=== PATIENT | female | born 1945 | race Caucasian/White ===

== ENCOUNTER 2020-04-15 15:48 | Inpatient (IN) ==
[2020-04-15] MEDS ORDERED: Insulin DETEMIR 100 UNIT/ML per UNIT SUBQ ONE (23:45)
[2020-04-16] MEDS: Gabapentin 300 MG CAPSULE PO SCH ×4 (00:09→20:31)
[2020-04-16] MEDS: Lactulose Oral Soln 20 GM/30 ML UDC PO SCH ×5 (00:09→20:29)
[2020-04-16] MEDS: rOPINIRole 0.25 MG TABLET PO SCH ×2 (00:09→20:31)
[2020-04-16 07:31] LABS: Basophils % 0.5 %; Eosinophils # 0.1 K/mcL (0.0-0.6); Eosinophils % 1.9 %; Hematocrit 31.5 % (35.3-44.9); Hemoglobin 9.4 g/dL (11.5-15.4); Immature Granulocytes % 0.2 % (0-4); Lymphocytes # 1.4 K/mcL (0.6-4.6); Lymphocytes % 33.3 %; Mean Corpuscular HGB Conc 29.8 g/dL (31.6-35.5); Mean Corpuscular Hemoglobin 24.4 pg (28.0-33.3); Mean Corpuscular Volume 81.6 fL (83.0-100.0); Mean Platelet Volume 10.4 fL (9.4-12.4); Monocytes # 0.6 K/mcL (0.0-1.3); Monocytes % 14.2 %; Neutrophils # 2.1 K/mcL (1.6-8.9); Platelet Count 118 K/mcL (140-400); Red Blood Count 3.86 M/mcL (3.82-4.97); Red Cell Distribution Width 22.3 % (11.5-14.5); Segmented Neutrophils % 49.9 %; White Blood Count 4.2 K/mcL (4.3-11.1)
[2020-04-16 07:46] LABS: BUN/Creatinine Ratio 21 (6-26); Blood Urea Nitrogen 15 mg/dL (8-23); Calcium 8.5 mg/dL (8.6-10.3); Carbon Dioxide 28 mEq/L (23-29); Chloride 102 mEq/L (98-107); Glucose 233 mg/dL (70-105); Osmolality,Calculated 284 (280-300); Potassium 4.1 mEq/L (3.5-5.1); Sodium 133 mEq/L (136-145); eGFR For African Americans > 60 (> 60); eGFR For Non-African Americans > 60 (> 60)
[2020-04-16] MEDS: Spironolactone 25 MG TABLET PO SCH (08:27)
[2020-04-16] MEDS: atenoloL 25 MG TABLET PO SCH (08:27)
[2020-04-16] MEDS: Furosemide 20 MG TABLET PO SCH (08:27)
[2020-04-16] MEDS: Aspirin Enteric Coated 81 MG Tablet PO SCH (08:27)
[2020-04-16] MEDS: Insulin LISPRO 300 UNITS/3 ML VIAL SUBQ SCH ×3 (08:28→17:09)
[2020-04-16] MEDS: Venlafaxine XR (24 HR) 37.5 MG CAP.ER.24H PO SCH (08:34)
[2020-04-16] MEDS ORDERED: Insulin DETEMIR 100 UNIT/ML X5UNITS SUBQ SCH (21:00)
[2020-04-17] MEDS: Insulin LISPRO 300 UNITS/3 ML VIAL SUBQ SCH ×4 (07:52→20:03)
[2020-04-17] MEDS: Venlafaxine XR (24 HR) 37.5 MG CAP.ER.24H PO SCH (09:20)
[2020-04-17] MEDS: atenoloL 25 MG TABLET PO SCH (09:20)
[2020-04-17] MEDS: Gabapentin 300 MG CAPSULE PO SCH ×3 (09:20→20:04)
[2020-04-17] MEDS: Spironolactone 25 MG TABLET PO SCH (09:21)
[2020-04-17] MEDS: Aspirin Enteric Coated 81 MG Tablet PO SCH (09:21)
[2020-04-17] MEDS: Furosemide 20 MG TABLET PO SCH (09:21)
[2020-04-17] MEDS: Lactulose Oral Soln 20 GM/30 ML UDC PO SCH ×4 (09:21→20:04)
[2020-04-17] MEDS: rOPINIRole 0.25 MG TABLET PO SCH (20:04)
[2020-04-17] MEDS ORDERED: Insulin DETEMIR 100 UNIT/ML per UNIT SUBQ ONE (21:00)
[2020-04-18 05:48] LABS: Basophils % 0.3 %; Eosinophils # 0.1 K/mcL (0.0-0.6); Eosinophils % 2.4 %; Hematocrit 31.2 % (35.3-44.9); Hemoglobin 9.2 g/dL (11.5-15.4); Immature Granulocytes % 0.3 % (0-4); Lymphocytes # 1.3 K/mcL (0.6-4.6); Lymphocytes % 34.9 %; Mean Corpuscular HGB Conc 29.5 g/dL (31.6-35.5); Mean Corpuscular Hemoglobin 24.3 pg (28.0-33.3); Mean Corpuscular Volume 82.3 fL (83.0-100.0); Mean Platelet Volume 10.5 fL (9.4-12.4); Monocytes # 0.4 K/mcL (0.0-1.3); Monocytes % 11.5 %; Neutrophils # 1.9 K/mcL (1.6-8.9); Platelet Count 115 K/mcL (140-400); Red Blood Count 3.79 M/mcL (3.82-4.97); Red Cell Distribution Width 22.6 % (11.5-14.5); Segmented Neutrophils % 50.6 %; White Blood Count 3.8 K/mcL (4.3-11.1)
[2020-04-18 06:06] LABS: Alanine Aminotransferase 29 Units/L (7-52); Albumin 2.9 g/dL (3.5-5.7); Albumin/Globulin Ratio 0.9 (1.1-2.2); Alkaline Phosphatase 102 Units/L (34-104); Aspartate Amino Transferase 45 Units/L (13-39); BUN/Creatinine Ratio 12 (6-26); Bilirubin,Total 0.7 mg/dL (0.3-1.0); Blood Urea Nitrogen 8 mg/dL (8-23); Calcium 8.5 mg/dL (8.6-10.3); Carbon Dioxide 27 mEq/L (23-29); Chloride 104 mEq/L (98-107); Globulin 3.3 g/dL (2.4-3.5); Glucose 172 mg/dL (70-105); Osmolality,Calculated 284 (280-300); Potassium 4.1 mEq/L (3.5-5.1); Sodium 136 mEq/L (136-145); Total Protein 6.2 g/dL (6.4-8.9); eGFR For African Americans > 60 (> 60); eGFR For Non-African Americans > 60 (> 60)
[2020-04-18] MEDS: Furosemide 20 MG TABLET PO SCH (08:09)
[2020-04-18] MEDS: Aspirin Enteric Coated 81 MG Tablet PO SCH (08:09)
[2020-04-18] MEDS: Spironolactone 25 MG TABLET PO SCH (08:09)
[2020-04-18] MEDS: Gabapentin 300 MG CAPSULE PO SCH ×3 (08:09→19:32)
[2020-04-18] MEDS: Venlafaxine XR (24 HR) 37.5 MG CAP.ER.24H PO SCH (08:09)
[2020-04-18] MEDS: atenoloL 25 MG TABLET PO SCH (08:09)
[2020-04-18] MEDS: Insulin LISPRO 300 UNITS/3 ML VIAL SUBQ SCH ×4 (08:10→19:44)
[2020-04-18] MEDS: Lactulose Oral Soln 20 GM/30 ML UDC PO SCH ×4 (08:14→19:32)
[2020-04-18] MEDS: rOPINIRole 0.25 MG TABLET PO SCH (19:32)
[2020-04-18] MEDS ORDERED: Insulin DETEMIR 100 UNIT/ML X5UNITS SUBQ SCH (21:00)
[2020-04-19] MEDS: Lactulose Oral Soln 20 GM/30 ML UDC PO SCH ×6 (02:58→23:54)
[2020-04-19] MEDS: Insulin LISPRO 300 UNITS/3 ML VIAL SUBQ SCH ×4 (07:25→19:46)
[2020-04-19] MEDS: atenoloL 25 MG TABLET PO SCH (08:04)
[2020-04-19] MEDS: Aspirin Enteric Coated 81 MG Tablet PO SCH (08:04)
[2020-04-19] MEDS: Furosemide 20 MG TABLET PO SCH (08:04)
[2020-04-19] MEDS: Gabapentin 300 MG CAPSULE PO SCH ×3 (08:04→19:46)
[2020-04-19] MEDS: Spironolactone 25 MG TABLET PO SCH (08:04)
[2020-04-19] MEDS: Venlafaxine XR (24 HR) 37.5 MG CAP.ER.24H PO SCH (08:05)
[2020-04-19] MEDS: rOPINIRole 0.25 MG TABLET PO SCH (19:46)
[2020-04-19] MEDS: Insulin DETEMIR 100 UNIT/ML X5UNITS SUBQ SCH (19:46)
[2020-04-20] MEDS: Insulin LISPRO 300 UNITS/3 ML VIAL SUBQ SCH ×4 (07:33→20:15)
[2020-04-20] MEDS: Venlafaxine XR (24 HR) 37.5 MG CAP.ER.24H PO SCH (07:53)
[2020-04-20] MEDS: Aspirin Enteric Coated 81 MG Tablet PO SCH (07:53)
[2020-04-20] MEDS: Furosemide 20 MG TABLET PO SCH (07:54)
[2020-04-20] MEDS: atenoloL 25 MG TABLET PO SCH (07:54)
[2020-04-20] MEDS: Spironolactone 25 MG TABLET PO SCH (07:54)
[2020-04-20] MEDS: Gabapentin 300 MG CAPSULE PO SCH ×3 (07:54→20:17)
[2020-04-20] MEDS: Lactulose Oral Soln 20 GM/30 ML UDC PO SCH ×4 (07:59→20:15)
[2020-04-20] MEDS ORDERED: Acetaminophen 325 MG TABLET PO ONE (11:19)
[2020-04-20 12:01] LABS: Basophils % 0.8 %; Eosinophils # 0.1 K/mcL (0.0-0.6); Eosinophils % 2.7 %; Hematocrit 34.1 % (35.3-44.9); Immature Granulocytes % 0.3 % (0-4); Lymphocytes % 26.5 %; Mean Corpuscular HGB Conc 29.3 g/dL (31.6-35.5); Mean Corpuscular Hemoglobin 24.3 pg (28.0-33.3); Mean Corpuscular Volume 82.8 fL (83.0-100.0); Monocytes # 0.4 K/mcL (0.0-1.3); Monocytes % 9.7 %; Neutrophils # 2.2 K/mcL (1.6-8.9); Platelet Count 110 K/mcL (140-400); Red Blood Count 4.12 M/mcL (3.82-4.97); Red Cell Distribution Width 22.5 % (11.5-14.5); White Blood Count 3.7 K/mcL (4.3-11.1)
[2020-04-20 12:19] LABS: Alanine Aminotransferase 28 Units/L (7-52); Albumin 3.3 g/dL (3.5-5.7); Albumin/Globulin Ratio 0.9 (1.1-2.2); Alkaline Phosphatase 118 Units/L (34-104); Aspartate Amino Transferase 43 Units/L (13-39); BUN/Creatinine Ratio 9 (6-26); Bilirubin,Total 0.8 mg/dL (0.3-1.0); Blood Urea Nitrogen 7 mg/dL (8-23); Carbon Dioxide 31 mEq/L (23-29); Chloride 100 mEq/L (98-107); Globulin 3.6 g/dL (2.4-3.5); Glucose 345 mg/dL (70-105); Osmolality,Calculated 292 (280-300); Potassium 4.2 mEq/L (3.5-5.1); Sodium 135 mEq/L (136-145); Total Protein 6.9 g/dL (6.4-8.9); eGFR For African Americans > 60 (> 60); eGFR For Non-African Americans > 60 (> 60)
[2020-04-20] MEDS: Insulin DETEMIR 100 UNIT/ML X5UNITS SUBQ SCH (20:16)
[2020-04-20] MEDS: rOPINIRole 0.25 MG TABLET PO SCH (20:17)
[2020-04-21] MEDS: Lactulose Oral Soln 20 GM/30 ML UDC PO SCH ×2 (00:49→08:00)
[2020-04-21] MEDS: Insulin LISPRO 300 UNITS/3 ML VIAL SUBQ SCH (07:50)
[2020-04-21] MEDS: Gabapentin 300 MG CAPSULE PO SCH (08:00)
[2020-04-21] MEDS: Venlafaxine XR (24 HR) 37.5 MG CAP.ER.24H PO SCH (08:00)
[2020-04-21] MEDS: Aspirin Enteric Coated 81 MG Tablet PO SCH (08:01)
[2020-04-21] MEDS: Furosemide 20 MG TABLET PO SCH (08:01)
[2020-04-21] MEDS: Spironolactone 25 MG TABLET PO SCH (08:01)
[2020-04-21] MEDS: atenoloL 25 MG TABLET PO SCH (08:01)
[2020-04-21 08:11] VITALS: BP 116/59
== END 2020-04-21 11:03 | disposition home or self-care (01) | DRG 946 ==
LOC: INPPIK → OBSVTOIN 19:22
PROVIDERS: ADMIT Family Medicine; ATTEND Family Medicine

== ENCOUNTER 2020-05-28 12:02 | Inpatient (IN) ==
[2020-05-28] MEDS: *HR* Metformin 500 MG TABLET PO SCH (19:35)
[2020-05-28] MEDS: rOPINIRole 0.25 MG TABLET PO SCH (19:41)
[2020-05-28] MEDS: Lactulose Oral Soln 20 GM/30 ML UDC PO SCH (19:41)
[2020-05-29] MEDS: Lactulose Oral Soln 20 GM/30 ML UDC PO SCH ×6 (00:25→23:56)
[2020-05-29 07:27] LABS: Basophils % 0.3 %; Eosinophils # 0.1 K/mcL (0.0-0.6); Eosinophils % 2.2 %; Hematocrit 30.7 % (35.3-44.9); Hemoglobin 9.4 g/dL (11.5-15.4); Immature Granulocytes % 0.3 % (0-4); Lymphocytes # 0.9 K/mcL (0.6-4.6); Lymphocytes % 28.8 %; Mean Corpuscular HGB Conc 30.6 g/dL (31.6-35.5); Mean Corpuscular Hemoglobin 25.8 pg (28.0-33.3); Mean Corpuscular Volume 84.3 fL (83.0-100.0); Monocytes # 0.4 K/mcL (0.0-1.3); Neutrophils # 1.8 K/mcL (1.6-8.9); Red Blood Count 3.64 M/mcL (3.82-4.97); Red Cell Distribution Width 20.1 % (11.5-14.5); Segmented Neutrophils % 55.4 %; White Blood Count 3.2 K/mcL (4.3-11.1)
[2020-05-29 07:28] LABS: Platelet Count 92 K/mcL (140-400)
[2020-05-29 07:55] LABS: BUN/Creatinine Ratio 10 (6-26); Blood Urea Nitrogen 7 mg/dL (8-23); Calcium 8.3 mg/dL (8.6-10.3); Carbon Dioxide 25 mEq/L (23-29); Chloride 105 mEq/L (98-107); Glucose 128 mg/dL (70-105); Osmolality,Calculated 284 (280-300); Potassium 3.6 mEq/L (3.5-5.1); Sodium 137 mEq/L (136-145); eGFR For African Americans > 60 (> 60); eGFR For Non-African Americans > 60 (> 60)
[2020-05-29] MEDS: *HR* Glimepiride 2 MG TABLET PO SCH (08:58)
[2020-05-29] MEDS: *HR* Metformin 500 MG TABLET PO SCH ×2 (08:58→17:13)
[2020-05-29] MEDS: *HR* SitaGLIPtin 100 MG TABLET PO SCH (08:58)
[2020-05-29] MEDS: Venlafaxine XR (24 HR) 75 MG CAP.ER.24H PO SCH (08:58)
[2020-05-29] MEDS: Aspirin Enteric Coated 81 MG Tablet PO SCH (08:59)
[2020-05-29] MEDS ORDERED: Furosemide 20 MG TABLET PO SCH (09:00)
[2020-05-29] MEDS ORDERED: Insulin DETEMIR 100 UNIT/ML X5UNITS SUBQ PRN (09:00)
[2020-05-29] MEDS ORDERED: Spironolactone 25 MG TABLET PO SCH (09:00)
[2020-05-29] MEDS ORDERED: D5% in Water 1,000 ML IVC PRN (18:12)
[2020-05-29] MEDS ORDERED: *HR* Dextrose 50 % in Water (Vial) 50 ML VIAL IVP PRN (18:12)
[2020-05-29] MEDS ORDERED: Dextrose Gel 15 GM/37.5 ML TUBE PO PRN ×2 (18:12)
[2020-05-29] MEDS: rOPINIRole 0.25 MG TABLET PO SCH (19:30)
[2020-05-30] MEDS: *HR* Enoxaparin 40 MG/0.4 ML SYRINGE SQ SCH (05:52)
[2020-05-30] MEDS: Aspirin Enteric Coated 81 MG Tablet PO SCH (08:37)
[2020-05-30] MEDS: *HR* Metformin 500 MG TABLET PO SCH ×2 (08:37→17:27)
[2020-05-30] MEDS: Venlafaxine XR (24 HR) 75 MG CAP.ER.24H PO SCH (08:37)
[2020-05-30] MEDS: *HR* Glimepiride 2 MG TABLET PO SCH (08:37)
[2020-05-30] MEDS: Spironolactone 25 MG TABLET PO SCH (08:37)
[2020-05-30] MEDS: Furosemide 20 MG TABLET PO SCH (08:38)
[2020-05-30] MEDS: Insulin LISPRO 300 UNITS/3 ML VIAL SUBQ SCH ×4 (08:38→20:42)
[2020-05-30] MEDS: *HR* SitaGLIPtin 100 MG TABLET PO SCH (08:38)
[2020-05-30] MEDS: Lactulose Oral Soln 20 GM/30 ML UDC PO SCH ×4 (08:43→20:41)
[2020-05-30] MEDS ORDERED: Spironolactone 25 MG TABLET PO SCH (09:00)
[2020-05-30] MEDS ORDERED: Sodium Ferric Gluconat/Sucrose 125 MG in 0.9 % Sodium Chloride 100 ML IVPB SCH (09:00)
[2020-05-30] MEDS: Acetaminophen 325 MG TABLET PO PRN (10:20)
[2020-05-30] MEDS: Iron Sucrose Complex 200 MG in 0.9 % Sodium Chloride 100 ML IVPB SCH (14:09)
[2020-05-30] MEDS: rOPINIRole 0.25 MG TABLET PO SCH (20:42)
[2020-05-30] MEDS: Ibuprofen 400 MG TABLET PO PRN (20:45)
[2020-05-31] MEDS: Lactulose Oral Soln 20 GM/30 ML UDC PO SCH ×5 (00:19→20:29)
[2020-05-31] MEDS: *HR* Enoxaparin 40 MG/0.4 ML SYRINGE SQ SCH (06:17)
[2020-05-31] MEDS: Insulin LISPRO 300 UNITS/3 ML VIAL SUBQ SCH ×4 (07:39→20:31)
[2020-05-31] MEDS: *HR* SitaGLIPtin 100 MG TABLET PO SCH (08:27)
[2020-05-31] MEDS: *HR* Glimepiride 2 MG TABLET PO SCH (08:27)
[2020-05-31] MEDS: *HR* Metformin 500 MG TABLET PO SCH ×2 (08:27→16:17)
[2020-05-31] MEDS: Aspirin Enteric Coated 81 MG Tablet PO SCH (08:27)
[2020-05-31] MEDS: Venlafaxine XR (24 HR) 75 MG CAP.ER.24H PO SCH (08:28)
[2020-05-31] MEDS: Furosemide 20 MG TABLET PO SCH (08:28)
[2020-05-31] MEDS: Spironolactone 25 MG TABLET PO SCH (08:28)
[2020-05-31] MEDS: Iron Sucrose Complex 200 MG in 0.9 % Sodium Chloride 100 ML IVPB SCH (08:29)
[2020-05-31] MEDS: rOPINIRole 0.25 MG TABLET PO SCH (20:29)
[2020-05-31] MEDS: Gabapentin 300 MG CAPSULE PO SCH (20:29)
[2020-06-01] MEDS: Lactulose Oral Soln 20 GM/30 ML UDC PO SCH ×5 (00:45→21:07)
[2020-06-01] MEDS: *HR* Enoxaparin 40 MG/0.4 ML SYRINGE SQ SCH (06:09)
[2020-06-01] MEDS: Ibuprofen 400 MG TABLET PO PRN ×2 (06:11→16:10)
[2020-06-01] MEDS ORDERED: atenoloL 25 MG TABLET PO SCH (09:00)
[2020-06-01] MEDS ORDERED: hydroCHLOROthiazide 25 MG TABLET PO SCH (09:00)
[2020-06-01] MEDS: Spironolactone 25 MG TABLET PO SCH (09:07)
[2020-06-01] MEDS: *HR* SitaGLIPtin 100 MG TABLET PO SCH (09:07)
[2020-06-01] MEDS: *HR* Metformin 500 MG TABLET PO SCH ×2 (09:07→16:03)
[2020-06-01] MEDS: Aspirin Enteric Coated 81 MG Tablet PO SCH (09:07)
[2020-06-01] MEDS: Venlafaxine XR (24 HR) 75 MG CAP.ER.24H PO SCH (09:07)
[2020-06-01] MEDS: Gabapentin 300 MG CAPSULE PO SCH ×3 (09:07→21:09)
[2020-06-01] MEDS: Furosemide 20 MG TABLET PO SCH (09:07)
[2020-06-01] MEDS: Insulin LISPRO 300 UNITS/3 ML VIAL SUBQ SCH ×4 (09:07→21:09)
[2020-06-01] MEDS: *HR* Glimepiride 2 MG TABLET PO SCH (09:07)
[2020-06-01] MEDS: rOPINIRole 0.25 MG TABLET PO SCH (21:09)
[2020-06-02] MEDS: Lactulose Oral Soln 20 GM/30 ML UDC PO SCH ×6 (00:33→23:14)
[2020-06-02] MEDS: *HR* Enoxaparin 40 MG/0.4 ML SYRINGE SQ SCH (05:08)
[2020-06-02] MEDS: Ibuprofen 400 MG TABLET PO PRN ×2 (09:27→14:47)
[2020-06-02] MEDS: *HR* SitaGLIPtin 100 MG TABLET PO SCH (09:27)
[2020-06-02] MEDS: *HR* Glimepiride 2 MG TABLET PO SCH (09:27)
[2020-06-02] MEDS: Aspirin Enteric Coated 81 MG Tablet PO SCH (09:27)
[2020-06-02] MEDS: Venlafaxine XR (24 HR) 75 MG CAP.ER.24H PO SCH (09:28)
[2020-06-02] MEDS: *HR* Metformin 500 MG TABLET PO SCH ×2 (09:28→16:50)
[2020-06-02] MEDS: Spironolactone 25 MG TABLET PO SCH (09:28)
[2020-06-02] MEDS: Gabapentin 300 MG CAPSULE PO SCH ×3 (09:28→20:56)
[2020-06-02] MEDS: Insulin LISPRO 300 UNITS/3 ML VIAL SUBQ SCH ×4 (09:28→20:57)
[2020-06-02] MEDS: Furosemide 20 MG TABLET PO SCH (09:28)
[2020-06-02] MEDS ORDERED: Iron Sucrose Complex 200 MG in 0.9 % Sodium Chloride 100 ML IVPB ONE (17:03)
[2020-06-02] MEDS: rOPINIRole 0.25 MG TABLET PO SCH (20:55)
[2020-06-03] MEDS: *HR* Enoxaparin 40 MG/0.4 ML SYRINGE SQ SCH (05:14)
[2020-06-03 07:07] LABS: Basophils % 0.6 %; Eosinophils # 0.2 K/mcL (0.0-0.6); Eosinophils % 3.5 %; Hematocrit 35.8 % (35.3-44.9); Hemoglobin 10.8 g/dL (11.5-15.4); Immature Granulocytes % 0.6 % (0-4); Lymphocytes # 1.2 K/mcL (0.6-4.6); Lymphocytes % 24.2 %; Mean Corpuscular HGB Conc 30.2 g/dL (31.6-35.5); Mean Corpuscular Hemoglobin 26.3 pg (28.0-33.3); Mean Corpuscular Volume 87.1 fL (83.0-100.0); Mean Platelet Volume 10.3 fL (9.4-12.4); Monocytes # 0.7 K/mcL (0.0-1.3); Monocytes % 13.1 %; Platelet Count 140 K/mcL (140-400); Red Blood Count 4.11 M/mcL (3.82-4.97); Red Cell Distribution Width 21.2 % (11.5-14.5); White Blood Count 5.1 K/mcL (4.3-11.1)
[2020-06-03] MEDS ORDERED: Oxymetazoline Nasal SPRAY BOTTLE NS ONE (07:31)
[2020-06-03] MEDS: Insulin LISPRO 300 UNITS/3 ML VIAL SUBQ SCH ×4 (10:33→22:36)
[2020-06-03] MEDS: Lactulose Oral Soln 20 GM/30 ML UDC PO SCH ×4 (11:02→22:41)
[2020-06-03] MEDS: *HR* SitaGLIPtin 100 MG TABLET PO SCH (11:10)
[2020-06-03] MEDS: Spironolactone 25 MG TABLET PO SCH (11:10)
[2020-06-03] MEDS: Aspirin Enteric Coated 81 MG Tablet PO SCH (11:10)
[2020-06-03] MEDS: *HR* Glimepiride 2 MG TABLET PO SCH (11:10)
[2020-06-03] MEDS: Furosemide 20 MG TABLET PO SCH (11:10)
[2020-06-03] MEDS: Acetaminophen 325 MG TABLET PO PRN ×2 (11:10→17:35)
[2020-06-03] MEDS: Venlafaxine XR (24 HR) 75 MG CAP.ER.24H PO SCH (11:10)
[2020-06-03] MEDS: Gabapentin 300 MG CAPSULE PO SCH ×3 (11:10→22:36)
[2020-06-03] MEDS: *HR* Metformin 500 MG TABLET PO SCH ×2 (11:11→17:35)
[2020-06-03] MEDS: *HR* HYDROcodone/Acet 5/325 mg TABLET PO PRN (14:51)
[2020-06-03] MEDS: rOPINIRole 0.25 MG TABLET PO SCH (22:36)
[2020-06-04] MEDS: Lactulose Oral Soln 20 GM/30 ML UDC PO SCH ×6 (00:30→23:38)
[2020-06-04] MEDS: *HR* HYDROcodone/Acet 5/325 mg TABLET PO PRN (03:10)
[2020-06-04 06:26] LABS: Alanine Aminotransferase 20 Units/L (7-52); Albumin/Globulin Ratio 0.9 (1.1-2.2); Alkaline Phosphatase 121 Units/L (34-104); Aspartate Amino Transferase 42 Units/L (13-39); BUN/Creatinine Ratio 7 (6-26); Bilirubin,Total 0.7 mg/dL (0.3-1.0); Blood Urea Nitrogen 5 mg/dL (8-23); Calcium 9.2 mg/dL (8.6-10.3); Carbon Dioxide 25 mEq/L (23-29); Chloride 102 mEq/L (98-107); Globulin 3.4 g/dL (2.4-3.5); Glucose 223 mg/dL (70-105); Osmolality,Calculated 282 (280-300); Potassium 4.2 mEq/L (3.5-5.1); Sodium 134 mEq/L (136-145); Total Protein 6.4 g/dL (6.4-8.9); eGFR For African Americans > 60 (> 60); eGFR For Non-African Americans > 60 (> 60)
[2020-06-04] MEDS: *HR* SitaGLIPtin 100 MG TABLET PO SCH (08:36)
[2020-06-04] MEDS: Aspirin Enteric Coated 81 MG Tablet PO SCH (08:36)
[2020-06-04] MEDS: Gabapentin 300 MG CAPSULE PO SCH ×3 (08:36→21:20)
[2020-06-04] MEDS: Spironolactone 25 MG TABLET PO SCH (08:36)
[2020-06-04] MEDS: *HR* Metformin 500 MG TABLET PO SCH ×2 (08:36→16:15)
[2020-06-04] MEDS: *HR* Glimepiride 2 MG TABLET PO SCH (08:36)
[2020-06-04] MEDS: Venlafaxine XR (24 HR) 75 MG CAP.ER.24H PO SCH (08:36)
[2020-06-04] MEDS: Insulin LISPRO 300 UNITS/3 ML VIAL SUBQ SCH ×4 (08:37→21:22)
[2020-06-04] MEDS: Acetaminophen 325 MG TABLET PO PRN (08:44)
[2020-06-04] MEDS: Furosemide 20 MG TABLET PO SCH (08:45)
[2020-06-04] MEDS: *HR* OxyCODONE Immed Rel 5 MG TABLET PO PRN ×3 (10:52→23:39)
[2020-06-04] MEDS: rOPINIRole 0.25 MG TABLET PO SCH (21:20)
[2020-06-05] MEDS: Insulin LISPRO 300 UNITS/3 ML VIAL SUBQ SCH ×4 (10:19→20:42)
[2020-06-05] MEDS: Aspirin Enteric Coated 81 MG Tablet PO SCH (10:50)
[2020-06-05] MEDS: Spironolactone 25 MG TABLET PO SCH (10:50)
[2020-06-05] MEDS: *HR* Metformin 500 MG TABLET PO SCH ×2 (10:50→16:49)
[2020-06-05] MEDS: *HR* Glimepiride 2 MG TABLET PO SCH (10:50)
[2020-06-05] MEDS: Furosemide 20 MG TABLET PO SCH (10:50)
[2020-06-05] MEDS: Venlafaxine XR (24 HR) 75 MG CAP.ER.24H PO SCH (10:50)
[2020-06-05] MEDS: Gabapentin 300 MG CAPSULE PO SCH ×3 (10:50→20:42)
[2020-06-05] MEDS: *HR* SitaGLIPtin 100 MG TABLET PO SCH (10:50)
[2020-06-05] MEDS: Lactulose Oral Soln 20 GM/30 ML UDC PO SCH ×4 (10:55→20:41)
[2020-06-05] MEDS: atenoloL 25 MG TABLET PO SCH (16:49)
[2020-06-05] MEDS: *HR* OxyCODONE Immed Rel 5 MG TABLET PO PRN (17:01)
[2020-06-05] MEDS: rOPINIRole 0.25 MG TABLET PO SCH (20:42)
[2020-06-06] MEDS: Lactulose Oral Soln 20 GM/30 ML UDC PO SCH ×5 (00:20→22:24)
[2020-06-06] MEDS: *HR* Enoxaparin 40 MG/0.4 ML SYRINGE SQ SCH (05:44)
[2020-06-06] MEDS: Insulin LISPRO 300 UNITS/3 ML VIAL SUBQ SCH ×4 (07:20→22:27)
[2020-06-06] MEDS: *HR* Metformin 500 MG TABLET PO SCH ×2 (09:03→17:00)
[2020-06-06] MEDS: Aspirin Enteric Coated 81 MG Tablet PO SCH (09:03)
[2020-06-06] MEDS: *HR* SitaGLIPtin 100 MG TABLET PO SCH (09:04)
[2020-06-06] MEDS: *HR* Glimepiride 2 MG TABLET PO SCH (09:04)
[2020-06-06] MEDS: Gabapentin 300 MG CAPSULE PO SCH ×3 (09:04→22:19)
[2020-06-06] MEDS: Furosemide 20 MG TABLET PO SCH (09:04)
[2020-06-06] MEDS: Spironolactone 25 MG TABLET PO SCH (09:04)
[2020-06-06] MEDS: atenoloL 25 MG TABLET PO SCH (09:04)
[2020-06-06] MEDS: Venlafaxine XR (24 HR) 75 MG CAP.ER.24H PO SCH (09:05)
[2020-06-06] MEDS: *HR* OxyCODONE Immed Rel 5 MG TABLET PO PRN ×2 (09:11→22:19)
[2020-06-06 09:17] LABS: Basophils % 0.7 %; Eosinophils # 0.2 K/mcL (0.0-0.6); Eosinophils % 3.6 %; Hematocrit 33.3 % (35.3-44.9); Immature Granulocytes % 0.7 % (0-4); Lymphocytes # 1.4 K/mcL (0.6-4.6); Lymphocytes % 23.7 %; Mean Corpuscular Hemoglobin 26.4 pg (28.0-33.3); Mean Corpuscular Volume 87.9 fL (83.0-100.0); Mean Platelet Volume 10.4 fL (9.4-12.4); Monocytes # 0.8 K/mcL (0.0-1.3); Monocytes % 13.4 %; Neutrophils # 3.5 K/mcL (1.6-8.9); Platelet Count 156 K/mcL (140-400); Red Blood Count 3.79 M/mcL (3.82-4.97); Red Cell Distribution Width 21.6 % (11.5-14.5); Segmented Neutrophils % 57.9 %
[2020-06-06 09:38] LABS: Alanine Aminotransferase 20 Units/L (7-52); Albumin 3.1 g/dL (3.5-5.7); Albumin/Globulin Ratio 0.9 (1.1-2.2); Alkaline Phosphatase 128 Units/L (34-104); Aspartate Amino Transferase 43 Units/L (13-39); BUN/Creatinine Ratio 7 (6-26); Bilirubin,Total 0.9 mg/dL (0.3-1.0); Blood Urea Nitrogen 5 mg/dL (8-23); Carbon Dioxide 27 mEq/L (23-29); Chloride 99 mEq/L (98-107); Globulin 3.5 g/dL (2.4-3.5); Glucose 259 mg/dL (70-105); Osmolality,Calculated 282 (280-300); Potassium 4.5 mEq/L (3.5-5.1); Sodium 133 mEq/L (136-145); Total Protein 6.6 g/dL (6.4-8.9); eGFR For African Americans > 60 (> 60); eGFR For Non-African Americans > 60 (> 60)
[2020-06-06] MEDS: rOPINIRole 0.25 MG TABLET PO SCH (22:19)
[2020-06-07] MEDS: Lactulose Oral Soln 20 GM/30 ML UDC PO SCH ×2 (00:30→08:16)
[2020-06-07] MEDS: *HR* OxyCODONE Immed Rel 5 MG TABLET PO PRN (06:03)
[2020-06-07] MEDS: *HR* Enoxaparin 40 MG/0.4 ML SYRINGE SQ SCH (06:03)
[2020-06-07 06:55] VITALS: BP 99/50
[2020-06-07] MEDS: Insulin LISPRO 300 UNITS/3 ML VIAL SUBQ SCH ×2 (08:16→11:30)
[2020-06-07] MEDS: atenoloL 25 MG TABLET PO SCH (08:17)
[2020-06-07] MEDS: *HR* Glimepiride 2 MG TABLET PO SCH (08:17)
[2020-06-07] MEDS: Furosemide 20 MG TABLET PO SCH (08:17)
[2020-06-07] MEDS: Spironolactone 25 MG TABLET PO SCH (08:17)
[2020-06-07] MEDS: Gabapentin 300 MG CAPSULE PO SCH (08:17)
[2020-06-07] MEDS: *HR* Metformin 500 MG TABLET PO SCH (08:17)
[2020-06-07] MEDS: Venlafaxine XR (24 HR) 75 MG CAP.ER.24H PO SCH (08:18)
[2020-06-07] MEDS: Aspirin Enteric Coated 81 MG Tablet PO SCH (08:18)
[2020-06-07] MEDS: *HR* SitaGLIPtin 100 MG TABLET PO SCH (08:18)
[2020-06-07 08:56] LABS: % Iron Saturation 20 % (15-50); Iron 56 mcg/dL (50-170); Transferrin 199 mg/dL (203-362)
[2020-06-07 09:14] LABS: Ferritin 261 ng/mL (10-120)
== END 2020-06-07 11:48 | disposition home health service (06) | DRG 945 ==
LOC: INPPIK 18:47
PROVIDERS: ADMIT Family Medicine; ATTEND Family Medicine